=== PATIENT | female | born 1970 | race Caucasian/White ===

== ENCOUNTER 2016-12-23 12:52 | Emergency (ER) | payer OTHER ==
--- NOTE | ~2016-12-23 | CN ---
Consultation Report [facility] [address] [place]. [address] NAME: SHENG FARR : 72 STATUS : DEP ER PAT#: [id number] AGE: 46 ADM/REG DATE : 12/23/16 MR#: [id number] REPORT SERV DATE: 12/24/16 DICTATED BY: ELIO OBRIEN DATE: 12/23/16 REPORT STATUS : Draft TRANSCRIBED BY: MARIAM DATE: 12/23/16 INFECTIOUS DISEASE CONSULTATION. DATE OF CONSULTATION: REASON FOR CONSULTATION: Febrile illness. HISTORY OF PRESENT ILLNESS: This is a 46-year-old female, who lives with her in [facility]. She lives in [facility]. On 12/05/2016, she went to a [place] ([facility]) near the border of [facility] and was in the [place] for the weekend for 3 days. While there, she hiked a lot. She did wear insect repellent. She took Malarone just for 2 to 3 days for malaria prophylaxis. She had no contact with water other than 1 brief boat ride. [place] left [place] on 12/08/2016, and then on 12/11/2016 left [facility] to come back to the [facility]. On that day, she felt a little feverish and just generally slightly fatigued. Her route back took her through [facility], and then to [place], and [place], and [place], and then she arrived in [place] on Friday about nine days ago and came to [place] late that night. While she was traveling, she had developed a pain in her right calf area, "deep ache." At some point along the way, she feels she was having some low- grade fevers although never took her temperature. After arriving back in [place], she continued her usual highly active lifestyle, hiking on most days, and just feeling somewhat more fatigued than usual. On 12/18/2016, she did a 6-mile hike in [facility] and that night her mother looked at her right calf where she had had this ache for so long and noticed a small raised red bump kind of a knot. The patient says this area hurt, but also itched some. The patient applied some Polysporin ointment on it and put a dressing over it. She continued to have fatigue and maybe some mild fevers. Yesterday, she looked at the area again, and it was more irritated and red. Then yesterday, she developed worsening myalgias and then more severe chills. For which, she took Advil. The patient presented to her primary care physician this morning and discussed the case with her, and then she was sent to the emergency department for further evaluation. The patient has had no headache with this illness. She did have a little bit of nausea earlier today. No diarrhea, or abdominal pain, or visual symptoms. She did note, or an examiner earlier today noted, a small lymph node in her right inguinal region. The patient believes she is up to date on all the usual vaccines that one would have for [facility]. PAST MEDICAL HISTORY: Otherwise unremarkable. She is healthy and active. ALLERGIES: FLAGYL CAUSES HEADACHE AND HIVES. MEDICATIONS: She does not take any chronic medications. SOCIAL HISTORY: As mentioned, lives in [facility] with her . They have 3 dogs, a cat, a tortoise and a snake. She does not have any significant contact really with the tortoise or the snake. The last time she was out of [facility] was back in July. She had her have a 12-year-old son, who is in a boarding school in [place] but came down to be Consultation Report [address] [place]. [address] NAME: SHENG FARR : 72 STATUS : [facility] PAT#: [id number] AGE: 46 ADM/REG DATE : 12/23/16 MR#: [id number] REPORT SERV DATE: 12/24/16 DICTATED BY: ELIO OBRIEN DATE: 12/23/16 REPORT STATUS : Draft TRANSCRIBED BY: MARIAM DATE: 12/23/16 in [place] with her during this period and is scheduled to fly back to [place] tomorrow morning. FAMILY HISTORY: Noncontributory. REVIEW OF SYSTEMS: As outlined above. In addition, no cough, chest pain, shortness of breath. No urinary tract infection symptoms. Denies any rash or skin problems elsewhere. She was diagnosis with tick bite fever back in 2010. PHYSICAL EXAMINATION: VITAL SIGNS: Patient is alert. Temperature in the emergency room 101.9, blood pressure 101/80, pulse 85, respiratory rate 16. GENERAL: She is alert and appropriate. She looks ill, but not in anyway toxic. HEAD AND NECK EXAM: Extraocular movements are intact. Conjunctivae normal. Oral cavity is clear. Neck is supple. No cervical lymphadenopathy. LUNGS: Clear to auscultation. CARDIAC: Regular rate and rhythm. Normal S1, S2 without murmur, gallop, or rub. ABDOMEN: Soft and nontender without organomegaly or masses. EXTREMITIES: On the patient's right posteromedial calf, she has a slightly raised skin lesion of a few millimeters in size, rounded, no ulcer or break in the skin. No drainage. The lesion is not really hyperpigmented. Surrounding this is an area of erythema of the skin and induration, but no fluctuance. The area is tender but not dramatically so. Examination of the right inguinal area shows 1 discrete palpable nontender lymph node of about a centimeter and half in size. NEUROLOGIC: Exam is grossly intact. LABORATORY STUDIES: White blood cell count 4.3, 80% neutrophils, 13% lymphocytes, 5% monocytes. Hemoglobin 15.2, platelets 164. Complete metabolic profile is normal including liver function tests. Creatinine is 0.83. Procalcitonin less than 0.05. Lactate 0.9. Chest x-ray is negative. I reviewed the patient's peripheral blood smear and saw no evidence of malaria or trypanosomiasis. IMPRESSION: The etiology of this patient's illness that includes of fevers, chills, and this right calf pain with a skin lesion and surrounding erythema is not clear. Importantly, her illness began with fatigue and subjective fevers, and pain in her right calf on 12/11/2016 less than a week after she entered the [place] in [facility]. Where she lives [facility] in [facility], malaria and other tropical illnesses would be much less likely although not impossible. Certainly, we always have to consider the possibility of malaria in any febrile illness or any febrile travel returning from [place]. However, I think malaria is unlikely here. The incubation period relative to her trip to the [place] would be fairly short, and she has no associated anemia or other lab abnormalities that I would expect at this point in illness that started 12 days ago. In addition, she of course this has obvious skin lesion which has been the focus of her discomfort now for some time. Must consider the possibility of tick-borne illness of course. However, she does not have a Consultation Report [place] [id number] [address] NAME: SHENG FARR : 72 STATUS : [facility] PAT#: [id number] AGE: 46 ADM/REG DATE : 12/23/16 MR#: [id number] REPORT SERV DATE: 12/24/16 DICTATED BY: ELIO OBRIEN DATE: 12/23/16 REPORT STATUS : Draft TRANSCRIBED BY: MARIAM DATE: 12/23/16 headache, and the skin lesion certainly is not classic for many of the tick-borne infections which would tend to form an eschar. However, this still remains a possibility here. I think this is less likely just to be a typical staph skin infection although that is also possible. I do not think she has an underlying abscess. She has asked about trypanosomiasis and I think that is also very unlikely. PLAN: 1. I recommended admission and observation status just to watch her a little more closely over the next 24 hours and make sure that with her recent nausea that she is able to take antibiotics. Because of this situation with her son's return tomorrow, she would like to go back home with her parents, and I do not think this is unreasonable. 2. We will continue her on doxycycline. She has received her first dose here in the emergency department, and she will continue on 100 mg p.o. b.i.d. for 10 days. This will cover the possibility of tick-borne infection along with Staph. 3. I have ordered a thick and thin malaria smears and will await the results of those, and I will also review those myself. I do not think the likelihood of malaria is high enough to warrant empiric treatment for malaria. 4. I will follow up with the patient over the phone tomorrow morning and determine the need for further reassessment in the office or in the hospital depending on how she is doing. She understands to return to the emergency department should she develop worsening symptoms. GABRIELA/MARIAM Elio Obrien M.D. / [id number]
[2016-12-23 13:19] LABS: BASOPHILS 0.7 %; BASOPHILS ABSOLUTE 0.03 10/3/uL (0.0-0.16); EOSINOPHILS 0.7 %; EOSINOPHILS ABSOLUTE 0.03 10/3/uL (0.0-0.53); ER CBC TAT 0 Hrs 05 Mins; HEMATOCRIT 43.3 % (36.0-48.0); HEMOGLOBIN 15.2 g/dL (12.0-16.0); IMMATURE GRANULOCYTES 0.2 %; IMMATURE GRANULOCYTES ABSOLUTE 0.01 10/3/uL (0.0-0.11); LYMPHOCYTES 13.4 %; LYMPHOCYTES ABSOLUTE 0.58 10/3/uL (0.67-4.30); MANUAL DIFF NO %; MEAN CORPUS HGB CONC 35.1 g/dL (32.0-36.0); MEAN CORPUSCULAR HEMOGLOB 32.6 pg (26.0-34.0); MEAN CORPUSCULAR VOLUME 92.9 fL (80-100); MEAN PLATELET VOLUME 10.1 fL (9.2-13.0); MONOCYTES 5.1 %; MONOCYTES ABSOLUTE 0.22 10/3/uL (0.21-1.20); NEUTROPHILS 79.9 %; NEUTROPHILS ABSOLUTE 3.47 10/3/uL (2.02-8.40); PLATELET COUNT 164 10/3/uL (150-400); RBC DISTRIBUTION WIDTH 12.7 % (12.0-16.0); RED CELL COUNT 4.66 10/6/uL (4.0-5.6); WHITE BLOOD CELLS 4.3 10/3/uL (4.5-10.5)
[2016-12-23 13:29] LABS: PARTIAL THROMBO TIME 30.5 SEC (22.5-37.2); PROTIME (NOT ORD) 13.3 SEC (12.0-14.5)
[2016-12-23 13:33] LABS: ALKALINE PHOSPHATASE 55 U/L (45-117); CALCIUM, SERUM 8.9 MG/DL (8.5-10.4); CHLORIDE, SERUM 102 MMOL/L (96-112); CREATININE 0.83 MG/DL (0.55-1.02); GFR AFRICAN AMERICAN 99 ML/MIN (>=60); GFR NON AFRICAN AMERICAN 85 ML/MIN (>=60); POTASSIUM, SERUM 3.6 MMOL/L (3.5-5.3); SGOT(AST) 20 U/L (5-40); SGPT(ALT) 28 U/L (5-65); SODIUM, SERUM 136 MMOL/L (135-148); TOTAL BILIRUBIN 0.5 MG/DL (0-1.2); TOTAL PROTEIN 7.9 G/DL (6.0-8.5)
[2016-12-23 13:34] LABS: BUN (BLOOD UREA NITROGEN) 8 MG/DL (6-23); CO2 (CARBON DIOXIDE) 24 MMOL/L (24-34); GLOBULIN 3.9 G/DL (2.5-4.1); GLUCOSE, SERUM 100 MG/DL (60-99)
[2016-12-23 13:35] LABS: LACTATE 0.9 MMOL/L (0.3-2.4)
[2016-12-23 14:20] LABS: PROCALCITONIN <0.05 ng/mL (<0.5)
[2016-12-24] MEDS ORDERED: MULTIVITAMI1 PO (11:06)
[2016-12-24] MEDS ORDERED: IBU400 PO (11:07)
[2016-12-24] MEDS ORDERED: ACET500CAP PO (11:08)
[2016-12-24] MEDS ORDERED: VIBRATAB100 MG PO (11:10)
== END 2016-12-23 17:25 | disposition home or self-care (01) ==
LOC: ER 12:52
PROVIDERS: Physician Assistant
DX: A93.8 Other specified arthropod-borne viral fevers (principal); Z88.8 Allergy status to other drugs, medicaments and biological substances
CPT/HCPCS: 71010; 80053; 81001; 83605; 84145; 84703; 85025; 85610; 85730; 87040; 87207; 93005; 96374; 96375; 99284; A9270-GY; J2405

== ENCOUNTER 2016-12-24 09:24 | Inpatient (IN) | payer OTHER ==
--- NOTE | ~2016-12-24 | HP ---
History And Physical [place] [address] [facility]. . [address] NAME: SHENG FARR : 72 STATUS : ADM IN LOCATED WITHIN [facility]#: [id number] AGE: 46 ADM/REG DATE : 12/24/16 MR#: [id number] REPORT SERV DATE: 12/24/16 DICTATED BY: VAHID AVELAR DATE: 12/24/16 REPORT STATUS : Draft TRANSCRIBED BY: MODL DATE: 12/24/16 DATE OF ADMISSION: 12/24/2016 PRINCIPAL DIAGNOSIS: Acute cellulitis. HISTORY OF PRESENT ILLNESS: Ms Farr is a 46-year-old female from [facility] yesterday for calf ache and fever after a lesion had raised up and become red indurated. The patient was seen by Dr. Obrien in the emergency department, was more concerned about tick bite fever with secondary cellulitis. Doxycycline had been prescribed; however, the patient continued to worsen and returned today at his request. The patient states she began noticing malaise on the flight over from [facility] on 12/11/2016. She attributed her malaise to various things including jet lag, hangovers, excessive hiking, etc., but on 12/18/2016, a spot was noted which was read on the back of her right calf. She began to treat with topical antibiotics, but began having fevers on 12/22/2016. She thinks she may have masked fever before then with ibuprofen. She did have issues with nausea and vomiting, some headaches, but no pain elsewhere. No shortness of breath. No other lesions. No diarrhea. REVIEW OF SYSTEMS: Remainder of the review of systems are negative. PAST MEDICAL HISTORY: As mentioned above. MEDICATIONS: Include ibuprofen. She recently took Malarone, some antimalarial preparation when in [place]. ALLERGIES: SHE IS ALLERGIC TO FLAGYL. FAMILY HISTORY: Remarkable that the both of her parents are healthy. SOCIAL HISTORY: The patient is a very active person. She hikes and runs regularly. She has had a recent exposure to wild animals on the [place]; however, she did not come in direct physical contact with any of them. She does have also history of tick bite exposure here in the [place]. She is unaware of any insect bites that she received in [place] while she was wearing insect repellent. PHYSICAL EXAMINATION: VITAL SIGNS: At presentation, blood pressure 101/80, pulse 85, respirations 18, temperature 101.9, and saturation 97%. GENERAL: Awake, alert, and oriented x3. In no apparent distress. HEENT: Pupils are reactive to light. Extraocular movements are intact. No cranial nerve deficits. Moist mucous membranes. Normal oropharynx. NECK: Revealed no jugular venous distention, carotid bruits, lymphadenopathy, or goiter. CARDIAC: Regular rate and rhythm. No murmurs, gallops, or rubs. LUNGS: Clear to auscultation bilaterally. Good excursion. ABDOMEN: Soft and nontender. Bowel sounds are normoactive. History And Physical [address] [address] NAME: SHENG FARR : 72 STATUS : ADM IN LOCATED WITHIN [facility]#: [id number] AGE: 46 ADM/REG DATE : 12/24/16 MR#: [id number] REPORT SERV DATE: 12/24/16 DICTATED BY: VAHID AVELAR DATE: 12/24/16 REPORT STATUS : Draft TRANSCRIBED BY: AMRIAM DATE: 12/24/16 EXTREMITIES: No cyanosis, clubbing, or edema. Her right lower extremity was significant for a right posterior calf 4 inch diameter round area of erythema with an area of induration in the center. There was no necrosis. No fluctuance. Area of lymphangitis streaking radiated laterally from the lesion and then diverted proximally where she had a 2 cm tender lymph node in the right groin. NEUROLOGIC: Normal sensory motor function in all four extremities. SKIN: Otherwise warm and dry. PSYCH: She is appropriate. LABORATORY EVALUATION: Procalcitonin is negative. White count of 4000, H and H are 15 and 43, and platelets 104. Sodium 136, potassium 3.6, chloride 102, bicarb 24, BUN 8, creatinine 0.8, and glucose 100. Chest x-ray was negative. ASSESSMENT AND PLAN: Febrile with calf lesion after a visit from [place]. tick bite fever is certainly the most common febrile illness brought home from travellers from [place]; however, this lesion is not typical, and I believe based on the lymphangitic streaking lymphadenitis, this is most likely a benign insect bite with secondary infection, intravenous antibiotics are therefore recommended. Ancef will be given intravenously. The dose of vancomycin versus clindamycin per Dr. Obrien. Doxycycline may continue. She may develop an abscess in that central area that may require incision and drainage. Differential diagnosis: However, Dr. Black who is an expert in insect borne diseases, is concerned about of violin spider envenomation which can result in a similar lesion as well as widespread necrosis. The good news is she has no necrosis, the lymphangitic streaking would not be typical of an envenomation that we would see in for instance from brown recluse spiders and this is less likely and should not require immediate surgical attention; however, I have marked the border of the lesion to make sure that upon antibiotic therapy, we do not see further growth of the condition. We will also follow to see if any central necrosis evolves. Conditions such as leishmaniasis and anthrax are very unlikely and will not require further treatment or contact isolation. JUAN PABLO/MARIAM Vahid Avelar M.D. / [id number] CC: Leo Fish DO Hal Hill, M.D.
--- NOTE | ~2016-12-24 | DS ---
Discharge Summary [place] [id number] [place]. [address] NAME: SHENG FARR : 72 STATUS : DIS IN PAT#: [id number] AGE: 46 ADM/REG DATE : 12/24/16 MR#: [id number] REPORT SERV DATE: 12/29/16 DICTATED BY: AVHID AVELAR DATE: 12/28/16 REPORT STATUS : Draft TRANSCRIBED BY: MODL DATE: 12/28/16 ADMISSION DATE: 12/24/2016 DISCHARGE DATE: 12/28/2016 PRINCIPAL DIAGNOSIS: Tropical febrile illness with cellulitis and rash, not otherwise specified. SECONDARY DIAGNOSES: tick bite fever, drug eruption, pancytopenia. HISTORY OF PRESENT ILLNESS: Please see my dictation from 12/24/2016. HOSPITAL COURSE: Patient admitted with a growing skin lesion with fevers and evidence of pancytopenia. The patient was treated initially for typical cellulitis, cultures, however, were negative, and she had absolutely no response at all to the Ancef. The cellulitic area grew markedly, fevers got worse, and she developed an eruption throughout the rest of her body, increasing lymphangitic streaking, and lymphadenitis. There was a concern for a tropical illness, a biopsy was taken, however, and blood smears were collected. No fungal elements, parasites, typical bacteria, AFB-staining organisms, or protozoa were identified. This was felt to not be consistent with sleeping sickness or fly larvae infestation. The patient continued to worsen, Ancef was discontinued. She actually received vancomycin and gentamicin and had a turn for the better. There was a consideration of tularemia as the source of her illness that may have responded to the gentamicin, vancomycin and gentamicin were given through 12/28/2016. She defervesced, the erythema of her leg had reduced tremendously down to the initial small round area of her mid right calf, drug eruption had also reduced substantially. She was left upon the doxycycline. She wished to go home. She would be returning to [place] where she had access to tropical disease specialists, it was felt it was reasonable to refer her under their care. Dr. Zoran Obrien who is involved in her care would keep in touch with her by telephone in the mean time. She required no further medicines other than the doxycycline. JUAN PABLO/MARIAM Vahid Avelar M.D. / [id number] CC: Leo Fish DO Hal [place], M.D.
--- NOTE | ~2016-12-24 | OP ---
Record Of Operation [facility] [address] [place]. [address] NAME: SHENG FARR : 72 STATUS : ADM IN PAT#: [id number] AGE: 46 ADM/REG DATE : 12/24/16 MR#: [id number] REPORT SERV DATE: 12/25/16 DICTATED BY: JOSY IVORY JR. DATE: 12/25/16 REPORT STATUS : Draft TRANSCRIBED BY: MARIAM DATE: 12/25/16 DATE OF PROCEDURE: 12/25/2016 PROCEDURE: Biopsy skin lesion, right catheter. PREOPERATIVE DIAGNOSIS: Right calf skin lesion, indeterminate. POSTOPERATIVE DIAGNOSIS: Right calf skin lesion, indeterminate. ANESTHESIA: Local. INDICATIONS: The patient has developed inflammatory process with the lesion in the right leg. There was concern for infectious process. Dr. Obrien of Infectious Disease requested tissue sampling for histology and cultures. DESCRIPTION OF PROCEDURE: The right calf area was prepped with alcohol and ChloraPrep, was injected with the lidocaine. With a 4-mm punch, a full-thickness sample was taken from the edge of the lesion, was submitted to Pathology and also for cultures and then there was a cavity in the internal portion that was swabbed for multiple cultures. Bleeding was controlled with pressure. The patient tolerated the procedure well. Sterile dressing was applied. GORAN/MARIAM Josy Ivory Jr., M.D. / [id number] CC: Leo Fish DO
[2016-12-24] MEDS ORDERED: MULTIVITAMI1 PO (11:06)
[2016-12-24] MEDS ORDERED: IBU400 PO (11:07)
[2016-12-24] MEDS ORDERED: ACET500CAP PO (11:08)
[2016-12-24] MEDS ORDERED: VIBRATAB100 MG PO (11:10)
[2016-12-24 12:17] LABS: BASOPHILS 0.3 %; BASOPHILS ABSOLUTE 0.01 10/3/uL (0.0-0.16); EOSINOPHILS 1.6 %; EOSINOPHILS ABSOLUTE 0.06 10/3/uL (0.0-0.53); HEMOGLOBIN 13.7 g/dL (12.0-16.0); IMMATURE GRANULOCYTES 0.3 %; IMMATURE GRANULOCYTES ABSOLUTE 0.01 10/3/uL (0.0-0.11); LYMPHOCYTES 9.9 %; LYMPHOCYTES ABSOLUTE 0.38 10/3/uL (0.67-4.30); MEAN CORPUS HGB CONC 35.1 g/dL (32.0-36.0); MEAN CORPUSCULAR HEMOGLOB 33.3 pg (26.0-34.0); MEAN CORPUSCULAR VOLUME 94.9 fL (80-100); MEAN PLATELET VOLUME 9.8 fL (9.2-13.0); MONOCYTES ABSOLUTE 0.46 10/3/uL (0.21-1.20); NEUTROPHILS 75.9 %; PLATELET COUNT 124 10/3/uL (150-400); RBC DISTRIBUTION WIDTH 12.8 % (12.0-16.0); RED CELL COUNT 4.11 10/6/uL (4.0-5.6); WHITE BLOOD CELLS 3.8 10/3/uL (4.5-10.5)
[2016-12-24 12:18] LABS: MANUAL DIFF NO %
[2016-12-24 12:34] LABS: ALBUMIN 3.4 G/DL (3.5-5.0); ALKALINE PHOSPHATASE 46 U/L (45-117); CALCIUM, SERUM 8.2 MG/DL (8.5-10.4); CHLORIDE, SERUM 107 MMOL/L (96-112); CO2 (CARBON DIOXIDE) 26 MMOL/L (24-34); CREATININE 0.81 MG/DL (0.55-1.02); GFR AFRICAN AMERICAN 102 ML/MIN (>=60); GFR NON AFRICAN AMERICAN 88 ML/MIN (>=60); GLOBULIN 3.3 G/DL (2.5-4.1); GLUCOSE, SERUM 117 MG/DL (60-99); POTASSIUM, SERUM 3.5 MMOL/L (3.5-5.3); SGOT(AST) 20 U/L (5-40); SGPT(ALT) 22 U/L (5-65); SODIUM, SERUM 140 MMOL/L (135-148); TOTAL BILIRUBIN 0.3 MG/DL (0-1.2); TOTAL PROTEIN 6.7 G/DL (6.0-8.5)
[2016-12-24 12:35] LABS: BUN (BLOOD UREA NITROGEN) 12 MG/DL (6-23)
[2016-12-24 12:56] LABS: SED RATE 11 MM/HR (0-20)
[2016-12-25 04:59] LABS: BASOPHILS 0.3 %; BASOPHILS ABSOLUTE 0.01 10/3/uL (0.0-0.16); EOSINOPHILS 1.2 %; EOSINOPHILS ABSOLUTE 0.04 10/3/uL (0.0-0.53); HEMOGLOBIN 12.2 g/dL (12.0-16.0); IMMATURE GRANULOCYTES 0.3 %; IMMATURE GRANULOCYTES ABSOLUTE 0.01 10/3/uL (0.0-0.11); LYMPHOCYTES ABSOLUTE 0.71 10/3/uL (0.67-4.30); MANUAL DIFF NO %; MEAN CORPUS HGB CONC 34.9 g/dL (32.0-36.0); MEAN CORPUSCULAR HEMOGLOB 32.9 pg (26.0-34.0); MEAN CORPUSCULAR VOLUME 94.3 fL (80-100); MEAN PLATELET VOLUME 10.4 fL (9.2-13.0); MONOCYTES 9.6 %; MONOCYTES ABSOLUTE 0.31 10/3/uL (0.21-1.20); NEUTROPHILS 66.6 %; NEUTROPHILS ABSOLUTE 2.14 10/3/uL (2.02-8.40); PLATELET COUNT 104 10/3/uL (150-400); RBC DISTRIBUTION WIDTH 12.6 % (12.0-16.0); RED CELL COUNT 3.71 10/6/uL (4.0-5.6); WHITE BLOOD CELLS 3.2 10/3/uL (4.5-10.5)
[2016-12-26 04:39] LABS: BASOPHILS 0.3 %; BASOPHILS ABSOLUTE 0.01 10/3/uL (0.0-0.16); EOSINOPHILS 3.3 %; EOSINOPHILS ABSOLUTE 0.11 10/3/uL (0.0-0.53); HEMATOCRIT 32.6 % (36.0-48.0); HEMOGLOBIN 11.2 g/dL (12.0-16.0); LYMPHOCYTES 23.7 %; LYMPHOCYTES ABSOLUTE 0.79 10/3/uL (0.67-4.30); MEAN CORPUS HGB CONC 34.4 g/dL (32.0-36.0); MEAN CORPUSCULAR HEMOGLOB 31.7 pg (26.0-34.0); MEAN CORPUSCULAR VOLUME 92.4 fL (80-100); MEAN PLATELET VOLUME 9.7 fL (9.2-13.0); MONOCYTES 5.7 %; MONOCYTES ABSOLUTE 0.19 10/3/uL (0.21-1.20); NEUTROPHILS ABSOLUTE 2.24 10/3/uL (2.02-8.40); PLATELET COUNT 91 10/3/uL (150-400); RBC DISTRIBUTION WIDTH 12.6 % (12.0-16.0); RED CELL COUNT 3.53 10/6/uL (4.0-5.6); WHITE BLOOD CELLS 3.3 10/3/uL (4.5-10.5)
[2016-12-26 04:49] LABS: MANUAL DIFF NO %
[2016-12-26 04:58] LABS: CALCIUM, SERUM 7.5 MG/DL (8.5-10.4); CHLORIDE, SERUM 107 MMOL/L (96-112); CO2 (CARBON DIOXIDE) 26 MMOL/L (24-34); CREATININE 0.68 MG/DL (0.55-1.02); GFR AFRICAN AMERICAN 122 ML/MIN (>=60); GFR NON AFRICAN AMERICAN 106 ML/MIN (>=60); GLUCOSE, SERUM 97 MG/DL (60-99); POTASSIUM, SERUM 3.8 MMOL/L (3.5-5.3); SGOT(AST) 21 U/L (5-40); SGPT(ALT) 18 U/L (5-65); SODIUM, SERUM 140 MMOL/L (135-148); TOTAL BILIRUBIN 0.2 MG/DL (0-1.2)
[2016-12-26 05:01] LABS: ALBUMIN 2.6 G/DL (3.5-5.0); ALKALINE PHOSPHATASE 35 U/L (45-117); BUN (BLOOD UREA NITROGEN) 5 MG/DL (6-23); GLOBULIN 2.7 G/DL (2.5-4.1); TOTAL PROTEIN 5.3 G/DL (6.0-8.5)
[2016-12-26 08:33] LABS: SMEAR FOR ABNORMAL CELLS SEE PATHOLOGY REPORT
[2016-12-27 06:01] LABS: BASOPHILS 0.2 %; BASOPHILS ABSOLUTE 0.01 10/3/uL (0.0-0.16); EOSINOPHILS ABSOLUTE 0.09 10/3/uL (0.0-0.53); HEMATOCRIT 34.4 % (36.0-48.0); IMMATURE GRANULOCYTES 0.4 %; IMMATURE GRANULOCYTES ABSOLUTE 0.02 10/3/uL (0.0-0.11); LYMPHOCYTES 16.4 %; LYMPHOCYTES ABSOLUTE 0.74 10/3/uL (0.67-4.30); MEAN CORPUS HGB CONC 34.9 g/dL (32.0-36.0); MEAN CORPUSCULAR VOLUME 94.5 fL (80-100); MEAN PLATELET VOLUME 10.4 fL (9.2-13.0); MONOCYTES 4.4 %; NEUTROPHILS 76.6 %; NEUTROPHILS ABSOLUTE 3.46 10/3/uL (2.02-8.40); PLATELET COUNT 107 10/3/uL (150-400); RBC DISTRIBUTION WIDTH 12.3 % (12.0-16.0); RED CELL COUNT 3.64 10/6/uL (4.0-5.6); WHITE BLOOD CELLS 4.5 10/3/uL (4.5-10.5)
[2016-12-27 06:02] LABS: MANUAL DIFF NO %
[2016-12-27 06:10] LABS: A/G RATIO 0.9 (0.7-1.9); ALBUMIN 2.7 G/DL (3.5-5.0); BUN (BLOOD UREA NITROGEN) 4 MG/DL (6-23); CALCIUM, SERUM 7.8 MG/DL (8.5-10.4); CHLORIDE, SERUM 105 MMOL/L (96-112); CO2 (CARBON DIOXIDE) 26 MMOL/L (24-34); CPK 27 U/L (0-200); GFR AFRICAN AMERICAN 128 ML/MIN (>=60); GFR NON AFRICAN AMERICAN 110 ML/MIN (>=60); GLUCOSE, SERUM 114 MG/DL (60-99); POTASSIUM, SERUM 3.5 MMOL/L (3.5-5.3); SGOT(AST) 26 U/L (5-40); SGPT(ALT) 23 U/L (5-65); SODIUM, SERUM 139 MMOL/L (135-148); TOTAL BILIRUBIN 0.4 MG/DL (0-1.2); TOTAL PROTEIN 5.7 G/DL (6.0-8.5)
[2016-12-27 06:12] LABS: ALKALINE PHOSPHATASE 43 U/L (45-117)
[2016-12-28 04:43] LABS: BASOPHILS 0.5 %; BASOPHILS ABSOLUTE 0.02 10/3/uL (0.0-0.16); EOSINOPHILS 8.3 %; EOSINOPHILS ABSOLUTE 0.32 10/3/uL (0.0-0.53); HEMOGLOBIN 11.5 g/dL (12.0-16.0); LYMPHOCYTES 27.6 %; LYMPHOCYTES ABSOLUTE 1.07 10/3/uL (0.67-4.30); MANUAL DIFF NO %; MEAN CORPUS HGB CONC 34.8 g/dL (32.0-36.0); MEAN CORPUSCULAR VOLUME 94.8 fL (80-100); MEAN PLATELET VOLUME 10.1 fL (9.2-13.0); MONOCYTES 5.4 %; MONOCYTES ABSOLUTE 0.21 10/3/uL (0.21-1.20); NEUTROPHILS 58.2 %; NEUTROPHILS ABSOLUTE 2.25 10/3/uL (2.02-8.40); PLATELET COUNT 103 10/3/uL (150-400); RBC DISTRIBUTION WIDTH 12.5 % (12.0-16.0); RED CELL COUNT 3.48 10/6/uL (4.0-5.6); WHITE BLOOD CELLS 3.9 10/3/uL (4.5-10.5)
[2016-12-28 04:53] LABS: BUN (BLOOD UREA NITROGEN) 5 MG/DL (6-23); CHLORIDE, SERUM 106 MMOL/L (96-112); CO2 (CARBON DIOXIDE) 30 MMOL/L (24-34); CREATININE 0.59 MG/DL (0.55-1.02); GFR AFRICAN AMERICAN 128 ML/MIN (>=60); GFR NON AFRICAN AMERICAN 111 ML/MIN (>=60); GLUCOSE, SERUM 135 MG/DL (60-99); POTASSIUM, SERUM 3.8 MMOL/L (3.5-5.3); SODIUM, SERUM 142 MMOL/L (135-148)
== END 2016-12-28 16:47 | disposition home or self-care (01) | DRG 603 ==
LOC: 4SO 09:24
PROVIDERS: Internal Medicine; Internal Medicine Infectious Disease
PROC: 0HBKXZX Excision of Right Lower Leg Skin, External Approach, Diagnostic (ICD-10-PCS; principal; 2016-12-25)
DX: L03.115 Cellulitis of right lower limb (principal); D61.818 Other pancytopenia; A93.8 Other specified arthropod-borne viral fevers; S80.861A Insect bite (nonvenomous), right lower leg, initial encounter; Z88.1 Allergy status to other antibiotic agents; Y99.8 Other external cause status; I88.8 Other nonspecific lymphadenitis; L27.0 Generalized skin eruption due to drugs and medicaments taken internally; T36.1X5A Adverse effect of cephalosporins and other beta-lactam antibiotics, initial encounter; Y92.238 Other place in hospital as the place of occurrence of the external cause; L29.8 Other pruritus
CPT/HCPCS: 71010; 80048; 80053; 82550; 83605; 83880; 84145; 85025; 85652; 86668; 86668-59; 87015; 87040; 87070; 87075; 87102; 87116; 87205; 87207; 88305; 88312; 88313; A9270-GY; J0690; J1170; J1580; J1885; J3370